=== PATIENT | male | born 2000 | race African-American/Black ===

== ENCOUNTER 2022-02-08 07:15 | Emergency (ER) | payer OTHER, SELFPAY ==
--- NOTE | ~2022-02-08 | CT_ITS ---
EXAMINATION: CT KNEE WITHOUT CONTRAST, RIGHT CLINICAL INFORMATION: Tibial plateau fracture COMPARISON: Same day radiographs TECHNIQUE: A noncontrast CT of the right knee is performed with sagittal and coronal reformats This CT examination was performed using dose optimization techniques as appropriate, variously including the following: *Automated exposure control *Adjustment of mA and/or kV according to patient size (this includes techniques or standardized protocols for targeted exams where dose is matched to indication/reason for exam; i.e. extremities or head) *Use of iterative reconstruction technique DLP: 175 mGy-cm FINDINGS: There is an oblique transverse fracture of the proximal tibia which extends along the articular surface of the lateral tibia at the junction with the tibial spine, extending medially through the epiphysis, to the medial metaphyseal cortex. There is impaction anteriorly resulting and a gap along the posterior cortex measuring up to 10 mm presumably by the PCL. Anteriorly, the fracture along the cortex in the coronal plane approximates the superficial aspect of the ACL insertion. There is a moderate lipohemarthrosis. The lipohemarthrosis appears to extend into a Rosales's cyst which has ruptured, extending distally deep to the medial gastrocnemius muscle. In addition, there is an avulsion fracture of the posterior superior fibular head with the fragment displaced approximately 1.3 cm, presumably avulsed by the biceps femoris and lateral collateral ligament insertions. CT/CT knee RT wo con IMPRESSION: Complex intra-articular fracture of the proximal tibia with anterior impaction and posterior avulsion as detailed in the comments. Moderate lipohemarthrosis. Avulsion fracture of the posterior fibular head apex at the biceps femoris/fibular collateral ligament insertion.
--- NOTE | ~2022-02-08 | XR_ITS ---
EXAMINATION: XR KNEE, RIGHT CLINICAL INFORMATION: Right knee injury COMPARISON: None TECHNIQUE: Four views of the right knee. FINDINGS: There is an oblique transverse, intra-articular fracture of the medial tibia which is anteriorly angulated and displaced, resulting and anteromedial subluxation of the distal femur and tibial fragment relative to the lateral tibial plateau. The fracture extends through the medial tibial metaphysis and the articular surface of the lateral tibia, lateral to the tibial spine. In addition, there is an avulsion fracture at the posterior aspect of the fibular head. XR/XR knee RT 2V IMPRESSION: Intra-articular tibial fracture with subluxation and fibular head avulsion as described. MRI is suggested to assess for additional soft tissue injuries, including at least a posterolateral corner injury.
--- NOTE | ~2022-02-08 | US_ITS ---
EXAMINATION: ULTRASOUND EXTREMITY NONVASCULAR CLINICAL INFORMATION: Right lower extremity trauma. COMPARISON: None TECHNIQUE: Focused ultrasound was performed in region of the patient's right lower extremity trauma in the gastrocnemius area. FINDINGS: There is a elongated complex fluid collection seen in between the fascial planes of the gastrocnemius muscle, raising the suspicion of a subtle elongated intramuscular hematoma and partial tear. US/US extremity nonvascular IMPRESSION: Complex elongated fluid collection in between the fascial planes of the gastrocnemius muscle, suggesting a partial tear an intramuscular hematoma. Close clinical correlation is requested. Finding would be better assessed with MRI scan.
--- NOTE | ~2022-02-08 | US_ITS ---
EXAMINATION: RIGHT LOWER EXTREMITY VENOUS DOPPLER ULTRASOUND CLINICAL INFORMATION: Calf swelling. COMPARISON: None. TECHNIQUE: Doppler spectral analysis and color flow Doppler imaging was performed of the right lower extremity. Compression and augmentation maneuvers were performed. FINDINGS: Low level internal echoes, incomplete compressibility and incomplete filling with color Doppler imaging is seen in the common femoral vein, suspicious for a partial thrombus. The remainder of the right lower extremity deep venous system is patent. Specifically, the greater saphenous vein takeoff, femoral vein, and popliteal vein are normally compressible with normal phasic changes seen with Doppler imaging. The midcalf peroneal and posterior tibial veins are patent as well. No popliteal cyst is seen. US/US venous duplex LE RT IMPRESSION: Suspicion of a nonocclusive right common femoral vein thrombosis. This critical result was discussed with Dr. Hampton 02/08/2022, 11:30 AM and it was ascertained that the content and urgency of this report was understood at the time of direct communication.
[2022-02-08 08:05] VITALS: BP 120/73; PULSE 94; RESP 16; TEMP 36.9; O2SAT 96; BMI 34.9
--- NOTE | 2022-02-08 08:42 | ED_ITS ---
HPI - Extremity Injury (Lower) General Chief Complaint: Extremity Injury, Lower Stated Complaint: R leg inj Time Seen by Provider: 02/08/22 08:23 Source: patient Mode of arrival: ambulatory Limitations: no limitations History of Present Illness HPI Narrative: 22 year old male came in for evaluation of her right lower extremity injury after playing dodge ball, patient twisted right lower extremities felt a pop fol lowed by swelling of the right calf, patient was unable to bear weight on the right lower extremity. Related Data Previous Rx's Medication Instructions Recorded oxycodone 5 mg tablet 5 mg PO Q8H PRN pain #14 tabs 02/08/22 rivaroxaban 15 mg (42)-20 mg (9) See Rx Instructions PO .COMPLEX 02/08/22 tablets in a starter pack (Xarelto #51 ea DVT-PE Treat 30d Start) Allergies Allergy/AdvReac Type Severity Reaction Status Date / Time amoxicillin Allergy Rash Verified 02/08/22 08:04 Review of Systems Review of Systems: All other systems are reviewed and are negative Constitutional: Reports as per HPI and Reports no additional constitutional complaints Eyes: Reports as per HPI and Reports no additional eye complaints Reports system reviewed and no additional complaints, except as documented Cardiovascular: Reports as per HPI and Reports no additional cardiovascular complaints Respiratory: Reports as per HPI and Reports no additional respiratory complaints Gastrointestinal: Reports as per HPI and Reports no additional gastrointestinal complaints Genitourinary: Reports no additional female genitourinary complaints Musculoskeletal: Reports no additional musculoskeletal complaints Skin/Breast: Reports system reviewed and no additional complaints, except as docu Psychiatric: Reports no additional psychiatric complaints Endocrine: Reports no additional endocrine complaints Hematologic/Lymphatic: Reports no additional hematologic/lymphatic complaints Allergic/Immunologic: Reports no additional allergic/immunologic complaints Reports system reviewed and no additional complaints, except as documented and Reports Abnormal speech present [facility] Social History Social History Advance Directives: No Advance Directives Information Provided: Yes Physical Exam Vital Signs: Vital Signs: Last Vital Signs Temp 98.4 F 02/08/22 08:05 Pulse 94 02/08/22 08:05 Resp 16 02/08/22 08:05 BP 120/73 02/08/22 08:05 Pulse Ox 96 02/08/22 08:05 O2 Del Method 02/08/22 08:05 BMI result Body Mass Index 34.9 Vital signs have been reviewed as appeared to be correct. Blood pressure normal. Heart rate normal. Respiration rate normal. Temperature normal. Oxygen saturation normal. Appearance: Alert. Oriented X3. No acute distress. Head: Normal external exam. Normocephalic. Atraumatic. No Orellana signs noted. No raccoon eyes noted Eyes: PERRLA. EOMI. Conjunctiva and sclera normal. Eyelids normal. ENT: TM's Normal. Pharynx normal. Uvula midline. Moist mucous membranes. No trismus noted. No drooling noted. No muffled voice noted. Neck: Normal inspection. Neck supple. FROM. No adenopathy. Thyroid Normal. No meningeal signs. No neck mass noted. CVS: Normal heart rate and rhythm. Heart sound normal. No murmurs noted. Pulses normal throughout. Respiratory: No respiratory distress. Painless inspiration. Breath sounds normal. No wheezes/rales/rhonchi noted. Chest nontender. No accessory muscle usage noted or decreased air movement noted. Abdomen: Soft and nontender. Bowel sounds normal in all 4 quadrants. No distention noted. No organomegaly noted. No visible injury noted. Back: No CVA tenderness. Full range of motion noted. Skin: Skin warm and dry. Normal skin color. Normal skin turgor. No rashes/lesions/lacerations noted. Extremities: Right knee swelling with tenderness with no deformity unable to bear weight, right calf swelling no muscular defect, patient unable to extend his right lower extremities, unable to raise the leg against gravity because severe pain. Neuro: Oriented X 3. Cranial nerve exam: II-XII are grossly intact No motor deficit. No sensory deficit. Reflexes normal. Course Course Course Narrative: 22-year-old male healthy and athletic came in after twisting injury of right knee while playing dodge ball causing right tibial plateau fracture with rupture of the gastrocnemius muscle. Unexpectedly venous Doppler ultrasound also showing a femoral vein blood clot. After discussing with orthopedic service in the ED recommended to get CT of the knee and send the patient with crutches and knee immobilizer to [facility] Orthopedic surgeon's service. Will start the patient on Xarelto and follow up as an outpatient with PCP. Leukocytosis likely to be reactionary to stress. MDM - Extremity Injury (Lower) Lab Data Attestation: I reviewed the patient's lab results. Result diagrams: 02/08/22 13:38 Labs: Lab Results 02/08/22 02/08/22 02/08/22 Range/Units 13:38 13:38 13:38 WBC 16.8 H (4.8-10.8) X10*3/uL RBC 4.75 (4.60-5.80) X10*6/uL Hgb 12.9 L (14.0-18.0) g/dl Hct 39.2 L (42.0-52.0) % MCV 82.5 (80.0-98.0) fL MCH 27.2 (27.0-33.0) pg MCHC 32.9 (31.0-36.0) g/dl RDW 11.9 (11.0-16.0) % Plt Count 331 (160-400) X10*3/uL MPV 9.8 (9.4-12.4) fL Immature Gran % (Auto) 0.3 (0.0-0.4) % Neut % (Auto) 82.6 H (45-73) % Lymph % (Auto) 11.6 L (20-40) % [place] % (Auto) 5.2 (2-11) % Eos % (Auto) 0.1 (0-4) % Baso % (Auto) 0.2 (0-2) % Lymph # (Auto) 2.0 (1.2-4.9) X10*3/uL [place] # (Auto) 0.9 (0.1-1.2) X10*3/uL Eos # (Auto) 0.0 (0.0-0.4) X10*3/uL Baso # (Auto) 0.0 (0.0-0.2) X10*3/uL Abs Immat Gran (auto) 0.05 H (0.00-0.03) X10*3/uL Absolute Neuts (auto) 13.9 H (2.0-8.3) x10*3/uL Absolute Nucleated RBC 0.000 (0.0-0.012) X10*3/uL Nucleated RBC % (auto) 0.0 (0.0-0.2) /100WBC PT 12.1 (10.0-13.1) SEC INR 1.1 (0.9-1.1) APTT 35.2 (24.1-38.0) SEC Imaging Data Knee CT: Attestation: I personally reviewed and interpreted this imaging study as follows: Radiologist's impression: Complex intra-articular fracture of the proximal tibia with anterior impaction and posterior avulsion as detailed in the comments. Moderate lipohemarthrosis. ? Avulsion fracture of the posterior fibular head apex at the biceps femoris/fibular collateral ligament insertion.? ? Right knee x-ray: Attestation: I personally reviewed and interpreted this imaging study as follows: Radiologist's impression: Intra-articular tibial fracture with subluxation and fibular head avulsion as described. MRI is suggested to assess for additional soft tissue injuries, including at least a posterolateral corner injury. ? Right venous Doppler ultrasound: Attestation: I personally reviewed and interpreted this imaging study as follows: Radiologist's impression: Suspicion of a nonocclusive right common femoral vein thrombosis. Right knee soft tissue nonvascular ultrasound: Attestation: I personally reviewed and interpreted this imaging study as follows: Radiologist's impression: Complex elongated fluid collection in between the fascial planes of the gastrocnemius muscle, suggesting a partial tear an intramuscular hematoma. Close clinical correlation is requested. Finding would be better assessed with MRI scan.? Discharge Plan Discharge Clinical Impression: Closed fracture of right tibial plateau, Acute deep vein thrombosis (DVT) of right femoral vein Patient Disposition: Home, Self-Care Instructions: Deep Vein Thrombosis (ED), ORIF (DC) Additional Instructions: Need to follow-up with your PCP for workup of new onset DVT in his thrombosis and possible repeat ultrasound in 2 weeks. Call [place] [facility] surgeon at phone [phone] and schedule an appointment with them. Take Tylenol 500 mg tablet every 6 hours if needed for pain ([id number]). Use the knee immobilizer and crutches at all times. No work for a week until see orthopedic. Take the x-ray/CT CD with you to your orthopedic appointment. Prescriptions: New Xarelto DVT-PE Treat 30d Start 15 mg (42)- 20 mg (9) tablets,dose pack See Rx Instructions .ROUTE .COMPLEX Qty: 51 0RF Rx Instructions: take one-15 mg tablet twice daily for 21 days, then one-20 mg tablet once daily; must take with meal/food oxycodone 5 mg tablet 5 mg PO Q8H PRN (Reason: pain) Qty: 14 0RF Rx Instructions: Partial Fill upon patient request. Referrals: Physician,Unknown J [Primary Care Provider] - Stand Alone Forms: Work/School Release
[2022-02-08] MEDS: oxyCODONE HCl Immed Release 5 MG TABLET PO (10:21)
[2022-02-08] MEDS: Ibuprofen 600 MG TABLET PO (10:21)
[2022-02-08 13:42] LABS: MANUAL DIFF FLAG NO
[2022-02-08 13:43] LABS: Basophils Percent Auto 0.2 % (0-2); Eosinophils Percent Auto 0.1 % (0-4); Hematocrit 39.2 % (42.0-52.0); Hemoglobin 12.9 g/dl (14.0-18.0); Imm Gran Abs Auto 0.05 X10*3/uL (0.00-0.03); Imm Gran Pct Auto 0.3 % (0.0-0.4); Lymphocytes Percent Auto 11.6 % (20-40); Mean Corpuscular HGB Conc 32.9 g/dl (31.0-36.0); Mean Corpuscular Hemoglobin 27.2 pg (27.0-33.0); Mean Corpuscular Volume 82.5 fL (80.0-98.0); Mean Platelet Volume 9.8 fL (9.4-12.4); Monocytes Absolute Auto 0.9 X10*3/uL (0.1-1.2); Monocytes Percent Auto 5.2 % (2-11); Neutrophils Absolute Auto 13.9 x10*3/uL (2.0-8.3); Neutrophils Percent Auto 82.6 % (45-73); Platelet Count 331 X10*3/uL (160-400); Red Blood Count 4.75 X10*6/uL (4.60-5.80); Red Cell Distribution Width 11.9 % (11.0-16.0); White Blood Count 16.8 X10*3/uL (4.8-10.8)
[2022-02-08 13:49] LABS: INTERNATIONAL NORM RATIO 1.1 (0.9-1.1); Prothrombin Time 12.1 SEC (10.0-13.1)
[2022-02-08 13:52] LABS: Partial Thromboplastin Time 35.2 SEC (24.1-38.0)
[2022-02-08] MEDS: Ibuprofen 400 MG TABLET PO (14:41)
[2022-02-08] MEDS: oxyCODONE HCl Immed Release 5 MG TABLET 10 MG PO (14:41)
== END 2022-02-08 18:14 | disposition home or self-care (01) ==
PROVIDERS: Emergency Provider Emergency Medicine
DX: S82.141A Displaced bicondylar fracture of right tibia, initial encounter for closed fracture (principal); I82.411 Acute embolism and thrombosis of right femoral vein; R60.0 Localized edema; Y29.XXXA Contact with blunt object, undetermined intent, initial encounter; Y93.6A Activity, physical games generally associated with school recess, summer camp and children; Y92.318 Other athletic court as the place of occurrence of the external cause; Y99.9 Unspecified external cause status; Z79.899 Other long term (current) drug therapy
CPT/HCPCS: 36415; 73560; 73700; 76882; 85025; 85610; 85730; 93971; 99283; 99284